=== PATIENT | male | born 1945 ===

== ENCOUNTER 2022-09-03 08:16 | Outpatient (CLI) | payer OTHER | END 2022-09-03 08:17 | disposition home or self-care (01) | LOC: LAB 08:16 | PROVIDERS: ATTEND Orthopaedic Surgery | DX: N39.0 Urinary tract infection, site not specified (principal) ==

== ENCOUNTER 2022-09-10 07:45 | Outpatient (CLI) | payer OTHER | END 2022-09-10 07:46 | disposition home or self-care (01) | LOC: LAB 07:45 | PROVIDERS: ATTEND Orthopaedic Surgery | DX: N39.0 Urinary tract infection, site not specified (principal) ==

== ENCOUNTER 2023-02-13 07:39 | Outpatient (CLI) | payer OTHER | END 2023-02-13 07:42 | disposition home or self-care (01) | LOC: LAB 07:39 | PROVIDERS: ATTEND Orthopaedic Surgery | DX: M85.9 Disorder of bone density and structure, unspecified (principal); E83.42 Hypomagnesemia; E56.1 Deficiency of vitamin K ==

== ENCOUNTER → 2023-02-14 | Outpatient (CLI) | payer OTHER | END | disposition home or self-care (01) | LOC: NUCLEAR 12:51 | PROVIDERS: ATTEND Orthopaedic Surgery | DX: M81.0 Age-related osteoporosis without current pathological fracture (principal) ==

== ENCOUNTER 2023-05-14 08:16 | Outpatient (CLI) | payer OTHER | END 2023-05-14 08:18 | disposition home or self-care (01) | LOC: LAB 08:16 | PROVIDERS: ATTEND Orthopaedic Surgery | DX: E21.3 Hyperparathyroidism, unspecified (principal); E88.9 Metabolic disorder, unspecified; M81.8 Other osteoporosis without current pathological fracture ==

== ENCOUNTER 2024-04-24 08:19 | Outpatient (CLI) | payer OTHER ==
[2024-04-24 09:34] LABS: ALBUMIN 3.7 gm/dL (3.4-5.0); BILIRUBIN TOTAL 0.85 mg/dL (0.3-1.2); CALCIUM 9.4 mg/dL (8.5-10.1); CREATININE SERUM 1.05 mg/dL (0.70-1.30); GFR 68.13; MAGNESIUM 2.3 mg/dL (1.8-2.4); PHOSPHOROUS 3.3 mg/dL (2.5-4.9); POTASSIUM 4.6 mEq/L (3.5-5.1); TOTAL PROTEIN 6.7 gm/dL (6.4-8.2)
[2024-04-25 13:06] LABS: CALCIUM IONIZED 5.4 mg/dL (4.5-5.6)
[2024-04-30 23:05] LABS: VITAMIN K 0.36 ng/mL (0.10-2.20)
== END 2024-04-24 08:20 | disposition home or self-care (01) ==
LOC: LAB 08:19
PROVIDERS: ATTEND Orthopaedic Surgery
DX: E55.9 Vitamin D deficiency, unspecified (principal); M85.9 Disorder of bone density and structure, unspecified; E56.1 Deficiency of vitamin K; E21.3 Hyperparathyroidism, unspecified; E88.89 Other specified metabolic disorders; M81.8 Other osteoporosis without current pathological fracture; E16.2 Hypoglycemia, unspecified

== ENCOUNTER 2024-05-01 12:05 | Outpatient (CLI) | payer OTHER | END 2024-05-01 12:06 | disposition home or self-care (01) | LOC: NUCLEAR 12:05 | PROVIDERS: ATTEND Orthopaedic Surgery | DX: M81.0 Age-related osteoporosis without current pathological fracture (principal) ==

== ENCOUNTER 2024-07-21 08:46 | Outpatient (CLI) | payer OTHER | END 2024-07-21 09:05 | disposition home or self-care (01) | LOC: TOM 08:46 | PROVIDERS: ATTEND Orthopaedic Surgery | DX: M25.551 Pain in right hip (principal); M25.552 Pain in left hip; M54.50 Low back pain, unspecified ==

== ENCOUNTER 2025-08-07 08:59 | Outpatient (CLI) | payer OTHER ==
[2025-08-07 11:06] LABS: ALT/SGPT 19.0 U/L (12-78); AST/SGOT 17.0 U/L (15-37); BILIRUBIN TOTAL 0.69 mg/dL (0.3-1.2); BUN CREA RATIO 16.0 (7.0-25.0); CREATININE SERUM 1.08 mg/dL (0.70-1.30); GFR 65.78; GLOBULINA 2.8 G/DL (2.4-3.5); GLUCOSE FASTING 92.0 mg/dL (65-100); OSMOLALITY SERUM 286.0 MOSM/KG (275-295)
[2025-08-10 16:11] LABS: CALCIUM IONIZED 5.1 mg/dL (4.5-5.6)
[2025-08-14 22:11] LABS: VITAMIN K 0.45 ng/mL (0.10-2.20)
== END 2025-08-07 09:09 | disposition home or self-care (01) ==
LOC: LAB 08:59
PROVIDERS: ATTEND Orthopaedic Surgery
DX: E55.9 Vitamin D deficiency, unspecified (principal); M85.9 Disorder of bone density and structure, unspecified; E56.1 Deficiency of vitamin K; E21.3 Hyperparathyroidism, unspecified; E88.9 Metabolic disorder, unspecified; M81.8 Other osteoporosis without current pathological fracture

== ENCOUNTER → 2025-08-31 10:22 | Outpatient (CLI) | payer OTHER | END | disposition home or self-care (01) | LOC: NUCLEAR 10:22 | PROVIDERS: ATTEND Orthopaedic Surgery | DX: M81.0 Age-related osteoporosis without current pathological fracture (principal) ==